=== PATIENT | female | born 1950 | race Caucasian/White ===

== ENCOUNTER 2019-08-01 08:07 | Day surgery (SDC) | payer MEDICARE ==
[~2019-08-01] VITALS: Ht 162.6 cm; Wt 69.8 kg
[~2019-08-01 08:07] MED LIST: LIOT25; LISI20
--- NOTE | 2019-08-01 09:19 | NUR ---
08/01/19 0919 Jane Chaidez ASSISTED PT TO RESTROOM
== END 2019-08-01 10:42 | disposition home or self-care (01) ==
LOC: ORSCSDS 08:07
PROVIDERS: Internal Medicine Gastroenterology
PROC: 0DJD8ZZ Inspection of Lower Intestinal Tract, Via Natural or Artificial Opening Endoscopic (ICD-10-PCS; principal; 2019-08-01 09:30)
DX: Z12.11 Encounter for screening for malignant neoplasm of colon (principal); Z80.0 Family history of malignant neoplasm of digestive organs; K57.30 Diverticulosis of large intestine without perforation or abscess without bleeding; I10 Essential (primary) hypertension; E03.9 Hypothyroidism, unspecified; E78.00 Pure hypercholesterolemia, unspecified; Z79.899 Other long term (current) drug therapy
CPT/HCPCS: J2704; J7120